=== PATIENT | male | born 1990 | race Caucasian/White ===

== ENCOUNTER 2023-09-13 12:37 | Inpatient (IN) | payer OTHER ==
[2023-09-13 13:54] VITALS: BMI 32.5
[2023-09-13] MEDS ORDERED: POLYETHYLENE GLYCOL (HEALTHYLAX) 3350 17 GM PACKET PO PRN (15:31)
[2023-09-13] MEDS ORDERED: guaiFENesin 600 MG TABLET.ER (FP) PO PRN (15:31)
[2023-09-13] MEDS ORDERED: DICYCLOMINE HCL 10 MG CAPSULE PO PRN (15:31)
[2023-09-13] MEDS ORDERED: IBUPROFEN 400 MG TABLET (FP) PO PRN (15:31)
[2023-09-13] MEDS ORDERED: ONDANSETRON *ODT* 4 MG TABLET SL PRN (15:31)
[2023-09-13] MEDS ORDERED: MAGNESIUM HYDROX 2400MG/30ML ORAL SUSPENSION 30 ML CUP PO PRN (15:31)
[2023-09-13] MEDS ORDERED: ACETAMINOPHEN 325 MG TABLET (FP) PO PRN (15:31)
[2023-09-13] MEDS ORDERED: IBUPROFEN 600 MG TABLET (FP) PO PRN (15:31)
[2023-09-13] MEDS ORDERED: BENZOCAINE/MENTHOL (CHLORASEPTIC ) LOZENGE MM PRN (15:31)
[2023-09-13] MEDS ORDERED: LOPERAMIDE HCL 2 MG CAPSULE PO PRN (15:31)
[2023-09-13] MEDS ORDERED: NALOXONE HCL 0.4 MG/ML VIAL IM PRN (15:31)
[2023-09-13] MEDS ORDERED: MAG HYDROX/AL HYDROX/SIMETH 30 ML UNIT-DOSE CUP PO PRN (15:31)
[2023-09-13] MEDS ORDERED: chlordiazePOXIDE HCL 25 MG CAPSULE PO PRN (15:31)
[2023-09-13] MEDS ORDERED: NALOXONE HCL (KLOXXADO) 8 MG SPRAY NS PRN (15:31)
[2023-09-13] MEDS ORDERED: BISMUTH SUBSALICYLATE 524 MG/30 ML PO PRN (15:31)
[2023-09-13] MEDS ORDERED: BENZONATATE 200 MG CAPSULE PO PRN (15:31)
[2023-09-13] MEDS ORDERED: amLODIPine BESYLATE 5 MG TABLET (FP) ONE ×2 (16:40→16:42)
[2023-09-13] MEDS ORDERED: NICOTINE 21 MG/24 HOURS TOPICAL PATCH ONE (16:41)
[2023-09-13] MEDS: NICOTINE 7 MG/24 HOURS TOPICAL PATCH TD SCH (16:44)
[2023-09-13] MEDS: PRENATAL VITAMINS W/ FOLIC ACID TABLET (FP) PO SCH (16:44)
[2023-09-13] MEDS: amLODIPine BESYLATE 10 MG TABLET (FP) PO SCH (16:44)
[2023-09-13] MEDS: chlordiazePOXIDE HCL 25 MG CAPSULE PO SCH (17:57)
[2023-09-13] MEDS: THIAMINE 100 MG TABLET PO SCH (22:34)
[2023-09-13] MEDS: MELATONIN 5 MG TABLETS PO SCH (22:34)
[2023-09-14 11:50] LABS: HEMATOCRIT 41.3 % (35.4-49); HEMOGLOBIN 13.9 GM/dL (11.7-16.9); MCH 32.4 pg (25.7-33.7); MCHC 33.7 g/dl (32.0-35.9); MEAN CELL VOLUME 96.3 fl (80-96); MEAN PLT VOLUME 7.4 fl (7.5-11.1); PLATELET COUNT 294 10^3/uL (134-434); RBC 4.29 M/mm3 (4.00-5.60); RDW 15.3 % (11.9-15.9); WHITE BLOOD COUNT 3.4 K/mm3 (4.0-10.0)
[2023-09-14 11:55] LABS: CHLORIDE 100 mmol/L (98-107); POTASSIUM 3.9 mmol/L (3.5-5.1); SODIUM 134 mmol/L (136-145)
[2023-09-14 12:03] LABS: ANION GAP 7 mmol/L (4-13); BLOOD UREA NITROGEN 6.7 mg/dL (7-18); CO2 27 mmol/L (21-32); GLUCOSE,RANDOM 168 mg/dL (74-106); SGPT/ALT 393 U/L (13-61)
[2023-09-14 12:04] LABS: ALBUMIN 3.4 g/dl (3.4-5.0); CREATININE 0.8 mg/dL (0.55-1.3); SGOT/AST 539 U/L (15-37)
[2023-09-14 12:05] LABS: ALK PHOS 323 U/L (45-117)
[2023-09-14 12:11] LABS: BILIRUBIN,TOTAL 1.7 mg/dL (0.2-1)
[2023-09-15] MEDS: chlordiazePOXIDE HCL 25 MG CAPSULE PO SCH (05:30)
[2023-09-16] MEDS ORDERED: chlordiazePOXIDE HCL 10 MG CAPSULE PO PRN
[2023-09-16] MEDS: chlordiazePOXIDE HCL 10 MG CAPSULE PO SCH (05:37)
[2023-09-17] MEDS: chlordiazePOXIDE HCL 10 MG CAPSULE PO SCH (06:00)
[2023-09-18] MEDS ORDERED: chlordiazePOXIDE HCL 10 MG CAPSULE PO ONE (05:00)
[2023-09-18] MEDS ORDERED: LACTULOSE 20 GM/30 ML UDC (FOR ORAL USE ONLY) PO PRN (09:26)
[2023-09-18 12:23] LABS: POTASSIUM 3.9 mmol/L (3.5-5.1)
[2023-09-18 12:39] LABS: BILIRUBIN,TOTAL 0.5 mg/dL (0.2-1); TOT PROT 6.8 g/dl (6.4-8.2)
[2023-09-18 12:41] LABS: CREATININE 0.7 mg/dL (0.55-1.3)
[2023-09-18 12:44] LABS: ALBUMIN 3.3 g/dl (3.4-5.0)
[2023-09-18 12:47] LABS: BLOOD UREA NITROGEN 12.3 mg/dL (7-18); CALCIUM 8.9 mg/dL (8.5-10.1)
[2023-09-18] MEDS: LACTULOSE 20 GM/30 ML UDC (FOR ORAL USE ONLY) PO SCH (14:04)
[2023-09-19] MEDS: METHOCARBAMOL 500 MG TABLET PO PRN (05:36)
[2023-09-19] MEDS: hydrOXYzine PAMOATE 25 MG CAPSULE (FP) PO PRN (05:36)
[2023-09-19 12:41] VITALS: BP 145/79; PULSE 78; RESP 19; TEMP 97.1
== END 2023-09-19 14:46 | disposition home or self-care (01) | DRG 897 ==
LOC: YASAS 12:37 → Y3N 16:37
PROVIDERS: ADMIT Allergy & Immunology; ATTEND Surgery
PROC: HZ2ZZZZ Detoxification Services for Substance Abuse Treatment (ICD-10-PCS; principal; 2023-09-13)
DX: F10.230 Alcohol dependence with withdrawal, uncomplicated (principal); F41.9 Anxiety disorder, unspecified; I10 Essential (primary) hypertension; R74.8 Abnormal levels of other serum enzymes; R74.01 Elevation of levels of liver transaminase levels
CPT/HCPCS: 36415; 71046-TC-FY; 80053; 80307; 82140; 82962; 85027; 86480; 86780; 93005; 93010